=== PATIENT | female | born 1950 | race Caucasian/White ===

== ENCOUNTER 2017-07-27 15:29 | Emergency (ER) | payer OTHER ==
[2017-07-27 15:32] VITALS: BP 137/62; BMI 30.4
[2017-07-27] MEDS ORDERED: TORADOL 60 MG VIAL IM ONE (15:44)
--- NOTE | 2017-07-27 15:45 | DR.EXTPAIN ---
HPI - Time seen Time seen: 15:40 - PCP Primary Care Physician: WILBER - HPI Comment HPI Comment: HISTORY BELOW. - Complaint/Symptoms Chief Complaint Doctor Comments: LEFT KNEE AND LEG PAIN TIMES ONE WEEK. INJURED IT ONE WEEK AGO. PAIN AND SWELLING IN KNEE INCREASING. ON NEURONTIN FOR NEUROPATHY. NOT HELPING PAIN. Chief Complaint:: LEFT KNEE PAIN S/P INJURY X 1 WEEK AGO - Nurses notes reviewed Nurses Notes Review: Yes - Source History Provided: Patient - Mode of arrival Mode of Arrival: Ambulatory - Timing Onset of Chief Complaint: 07/20/17 - Context History of: None (NEUROPATHY PRESENT.) - Associated signs and symptoms Associated Signs and Symptoms: Pain, Swelling, Bruising PMH - PMH Past Medical History: Yes Past Medical History: Diabetes, Hypertension Past Surgical History: Yes Surgical History: - Family History History of Family Medical Conditions: No - Social History Does patient currently use any type of tobacco product: No Have you used tobacco products in the last 12 months: No Type of Tobacco Use: None Does any household member use tobacco: No Alcohol Use: None Do you use any recreational Drugs:: No Lives With: Family Lives Where: Home - infectious screening In the last 2 months have you had wt loss of >10#?: NO Have you had fever, night sweats or hemotysis?: No Have you traveled outside the country in the last 6 months?: No Isolation: Standard ROS - Review of Systems Constitutional: No Symptoms Reported Eyes: No Symptoms Reported ENTM: No Symptoms Reported Respiratoy: No Symptoms Reported Cardiovascular: No Symptoms Reported Gastrointestinal/Abdominal: No Symptoms Reported Genitourinary: No Symptoms Reported Neurological: Other (NEUROPATHY) Musculoskeletal: Joint Pain, Joint Swelling, Muscle Pain, Left, Knee Integumentary: No Symptoms Reported Hematologic/Lymphatic: No Symptoms Reported Endocrine: No Symptoms Reported All Other Systems: Reviewed and Negative PE - Vital Signs Vitals: Temperature 97 F Pulse Rate 98 Respiratory Rate 17 Blood Pressure 137/62 O2 Sat by Pulse Oximetry 97 - General Limitations: No Limitations General Appearance: Alert - Head Head Exam: Normal Inspection - Eyes Eye exam: Normal Appearance - ENT ENT Exam: Normal External Ear Exam - Neck Neck Exam: Normal Inspection - Chest Chest Inspection: Symmetric Chest Wall Rise - Respiratory Respiratory Exam: Normal Lung Sounds Bilat Respiratory Exam: Bilateral Clear to Auscultation - Cardiovascular Cardiovascular Exam: Regular Rate, Normal Rhythm, Normal Heart Sounds - Abdominal Exam Abdominal Exam: Normal Bowel Sounds, Soft. negative: Tenderness - Extremities Extremities Exam: Tenderness (LT KNEE TENDER AND SWOLLEN AND SHEEN BRUISED AND TENDER.) - Lower Extremities Neurovascular/Tendon Exam: Normal Capillary Refill - Back Back Exam: Normal Inspection - Neurological Neurological Exam: Alert, Oriented X3 - Psychiatric Psychiatric Exam: Normal Affect, Normal Mood - Skin Skin Exam: Erythema MDM - Differential Diagnosis Differential Diagnosis: Contusion, Fracture, Sprain Course - Treatment Treatment: SEE REPORT - Education/Counseling Education/Counseling: Patient, Education Educated On: Diagnosis, Needs for Follow Up ROR - XRAY XRAY Interpreted by: Radiologist XRAY Findings: REPORT DISCUSS WITH PATIENT. - Diagnosis Discharge Problem: Left knee sprain Qualifiers: Encounter type: initial encounter Involved ligament of knee: unspecified ligament Qualified Code(s): S83.92XA - Sprain of unspecified site of left knee, initial encounter Contusion of left leg Qualifiers: Encounter type: initial encounter Qualified Code(s): S80.12XA - Contusion of left lower leg, initial encounter - Discharge Plan Disposition: 01 HOME, SELF-CARE Condition: Stable Prescriptions: Ibuprofen [MOTRIN TAB 600 MG *] 600 mg PO TID PRN #20 tab PRN Reason: Pain/Inflammation - Follow ups/Referrals Follow ups/Referrals: Gasper Camacho [Primary Care Provider] - 3 days - Instructions Instructions: Musculoskeletal Pain, Knee Pain, [id number] Additional Instructions: RETURN TO ED IF WORSE.
[2017-07-27] MEDS ORDERED: TORADOL 60 MG VIAL ONE (15:48)
[2017-07-27] MEDS ORDERED: TORADOL TAB PO ONE ×2 (16:12→16:38)
--- NOTE | 2017-07-27 16:27 | RAD ---
Left knee, three views Indication: Knee pain after bending/kneeling down to clean under bed Comparison: None Findings: No acute fracture, malalignment or significant joint effusion is identified. There is mild degenerative narrowing of the patellofemoral compartment. Soft tissues are unremarkable. Impression: Mild degenerative narrowing of patellofemoral compartment without acute fracture or dislocation. Reported By:
== END 2017-07-27 17:01 | disposition home or self-care (01) ==
LOC: ER 15:36
DX: S83.92XA Sprain of unspecified site of left knee, initial encounter (principal); S80.12XA Contusion of left lower leg, initial encounter; Y33.XXXA Other specified events, undetermined intent, initial encounter; Y92.9 Unspecified place or not applicable
CPT/HCPCS: 29530; 73560; 99282; J1885

== ENCOUNTER 2020-09-09 07:57 | Inpatient (IN) ==
[2020-09-09 08:08] VITALS: BMI 32.7
[2020-09-09] MEDS ORDERED: CARDIZEM INJ 50 MG VIAL IVP ONE (08:27)
[2020-09-09] MEDS ORDERED: CARDIZEM INJ 50 MG VIAL ONE (08:31)
[2020-09-09 08:40] LABS: BASOPHILS # (AUTO) 0.1 X10^3/uL (0.0-0.1); EOSINOPHILS # (AUTO) 0.2 x10^3/uL (0.0-0.2); EOSINOPHILS % (AUTO) 4.1 % (0.9-2.9); HEMATOCRIT 35.7 % (36.0-47.0); HEMOGLOBIN 11.8 g/dL (12.0-16.0); LYMPHOCYTES # (AUTO) 1.7 X10^3/uL (1.3-2.9); LYMPHOCYTES % (AUTO) 29.1 % (21.0-51.0); MEAN CORPUSCULAR HEMOGLOBIN 30.2 pg (27.0-34.0); MEAN CORPUSCULAR VOLUME 91.8 fL (80.0-100.0); MEAN PLATELET VOLUME 9.4 fL (7.4-11.0); MONOCYTES # (AUTO) 0.7 x10^3/uL (0.3-0.8); NEUTROPHILS # (AUTO) 3.1 x10^3/uL (2.2-4.8); NEUTROPHILS % (AUTO) 52.8 % (42.0-75.0); PLATELET COUNT 136 X10^3/uL (150.0-450.0); WHITE BLOOD COUNT 5.8 X10^3/uL (3.6-10.0)
--- NOTE | 2020-09-09 08:49 | RAD ---
HISTORYSOBSTUDYCHEST, 1 VIEWCOMPARISONNoneFINDINGSThe lungs are clear. No pneumothorax or significant effusion.The heart is probably large even accounting for magnification.Bones are unremarkable.EKG leads are noted.IMPRESSION1. Probable cardiomegalyElectronically signed by: Umer Corbin (Sep 09, 2020 08:47:22)
[2020-09-09] MEDS ORDERED: ASPIRIN 81 MG CHEWTAB ONE (08:55)
[2020-09-09] MEDS: ASPIRIN 81 MG CHEWTAB PO ONE ×2 (08:58→10:45)
[2020-09-09 09:09] LABS: BLOOD UREA NITROGEN 12 mg/dL (7-18); CALCIUM 9.2 mg/dL (8.5-10.1); CARBON DIOXIDE 27.1 mmol/L (21-32); CHLORIDE 107 mmol/L (98-107); COR NA(FOR HYPERGLY) 144 mmol/L (136-145); CREATININE 0.82 mg/dL (0.55-1.02); SODIUM 143 mmol/L (136-145); TROPONIN I 0.02 ng/mL (0-1.5); eGFR NON BLACK RACES > 60 (>60)
[2020-09-09 09:14] LABS: ALANINE AMINOTRANSFERASE 26 Units/L (12-78); ALBUMIN 3.2 g/dL (3.4-5.0); ALKALINE PHOSPHATASE 191 Units/L (46-116); ASPARTATE AMINO TRANSFERASE 46 Units/L (15-37); CKMB % 3.1 % (<4); COR CA(FOR HYPOALB) 9.8 mg/dL (8.5-10.1); CREATINE KINASE 52 Units/L (26-192); CREATINE KINASE MB 1.6 ng/mL (0-4.0); TOTAL PROTEIN 6.9 g/dL (6.4-8.2)
[2020-09-09] MEDS: CARDIZEM INJ 125 MG VIAL 125 MG in NS 100 ML IV 100 ML IV PRN ×2 (09:23→17:00)
--- NOTE | 2020-09-09 10:10 | DR.SOBA ---
HPI Time Seen Time Seen by Provider: 09/09/20 08:17 Primary Care Physician Primary Care Physician: TEA Complaints Chief Complaint Doctors Comments: cc SOB HPI pt was in out patient surgery to get EGD when a fast irregular HR was noted a HR iof 138 was notef and patient was transferred to Ed. OPt was not aware of fast hr but has noted CHAN last few weeks no CP Chief Complaint:: PT WAS HERE BEING PREP FOR COLONSCOPEY, PT COPLAINTS OF BEING SHORT OF BREATHE, WHEN VITAL SIGNS WERE OBTAINED PT HR IN THE 150, EKG SHOWED A- FIB WITH HR 138. PT DENIES HISTORY OF A-FIB OR ANY CHEST PAIN. 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 Family History History of Family Medical Conditions: No Social History Does patient currently use any type of tobacco product: No Have you used tobacco products in the last 12 months: No Type of Tobacco Use: None Does any household member use tobacco: No Alcohol Use: None Do you use any recreational Drugs:: No Lives With: Family Lives Where: Home Travel Risk Coronavirus risk:travel/contact w/high risk person: No Has patient experienced Coronavirus symptoms: No Infectious screening In the last 2 months have you had wt loss of >10#?: NO Have you had fever, night sweats or hemotysis?: No Have you traveled outside the country in the last 6 months?: No Isolation: Standard ROS Review of Systems Constitutional: No Symptoms Reported ENTM: No Symptoms Reported Respiratoy: Short of Breath Cardiovascular: See HPI Gastrointestinal/Abdominal: No Symptoms Reported Genitourinary: No Symptoms Reported Neurological: No Symptoms Reported Musculoskeletal: No Symptoms Reported Integumentary: No Symptoms Reported Hematologic/Lymphatic: No Symptoms Reported Endocrine: No Symptoms Reported Psychiatric: No Symptoms Reported All Other Systems: Reviewed and Negative PE Vital Signs Vitals: Temperature 97.8 F Pulse Rate 111 Respiratory Rate 10 Blood Pressure 142/63 O2 Sat by Pulse Oximetry 99 General Limitations: No Limitations General Appearance: Alert and In No Apparent Distress Head Head Exam: Normal Inspection, Atraumatic and Normocephalic Eyes Eye exam: Normal Appearance, PERRL and EOMI ENT ENT Exam: Normal Exam, Normal Oropharynx and Normal External Ear Exam Neck Neck Exam: Normal Inspection, Full ROM and Trachea Midline Chest Chest Inspection: Normal Inspection and Symmetric Chest Wall Rise; negative Tenderness Respiratory Respiratory Exam: Normal Lung Sounds Bilat; negative Accessory Muscle Use and Chest Wall Tenderness Respiratory Exam: Bilateral: Clear to Auscultation Cardiovascular Cardiovascular Exam: Tachycardia and Irregular Rhythm Abdominal Exam Abdominal Exam: Normal Inspection, Normal Bowel Sounds and Soft; negative Distention, Tenderness and Guarding Extremities Extremities Exam: Normal Inspection and Full ROM; negative Tenderness Back Back Exam: Normal Inspection and Full ROM; negative Tenderness Neurologic Neurological Exam: Alert, Oriented X3 and Normal Gait (gait not tested but intact sppech and thought and 5/5 strngth thoughourt) Psychiatric Psychiatric Exam: Normal Affect and Normal Mood Skin Skin Exam: Warm, Dry, Intact and Normal Color MDM Differential Diagnosis Differential Diagnosis: Anxiety, Cardiogenic shock, CHF, Dysrhythmia, Hyperventilation, Hyponatremia, Mycardial Infarction, Panic Attack, Pneumothorax, PSVT, Respiratory Failure and Other Differential Diagnosis Comment:: A fob with RVR COURSE Treatment Treatment: pt received 20mg Diltiazem with resolution of sx but HR began creeping up to 114 so I started a drip f diltiazem at 5mg / hour with good control ROR Labs Reviewed Result Diagrams: 09/09/20 08:26 09/09/20 08:26 Laboratory: WBC 5.8 X10^3/uL (3.6-10.0) 09/09/20 08:26 RBC 3.90 X10^6/uL (3.5-5.4) 09/09/20 08:26 Hgb 11.8 g/dL (12.0-16.0) L 09/09/20 08:26 Hct 35.7 % (36.0-47.0) L 09/09/20 08:26 MCV 91.8 fL (80.0-100.0) 09/09/20 08:26 MCH 30.2 pg (27.0-34.0) 09/09/20 08:26 MCHC 33.0 g/dL (33.0-35.0) 09/09/20 08:26 RDW 16.0 % (11.6-16.5) 09/09/20 08:26 Plt Count 136 X10^3/uL (150.0-450.0) L 09/09/20 08:26 MPV 9.4 fL (7.4-11.0) 09/09/20 08:26 Neut % (Auto) 52.8 % (42.0-75.0) 09/09/20 08:26 Lymph % (Auto) 29.1 % (21.0-51.0) 09/09/20 08:26 [place] % (Auto) 13.0 % (0.0-13.0) 09/09/20 08:26 Eos % (Auto) 4.1 % (0.9-2.9) H 09/09/20 08:26 Baso % (Auto) 1.0 % (0.2-1.0) 09/09/20 08:26 Neut # (Auto) 3.1 x10^3/uL (2.2-4.8) 09/09/20 08:26 Lymph # (Auto) 1.7 X10^3/uL (1.3-2.9) 09/09/20 08:26 [place] # (Auto) 0.7 x10^3/uL (0.3-0.8) 09/09/20 08:26 Eos # (Auto) 0.2 x10^3/uL (0.0-0.2) 09/09/20 08:26 Baso # (Auto) 0.1 X10^3/uL (0.0-0.1) 09/09/20 08:26 Absolute Nucleated RBC 0.1 /100WBC 09/09/20 08:26 PT 15.8 SECONDS (11.8-14.3) 09/09/20 08:26 INR Target Range - 09/09/20 08: INR 1.30 (0.8-1.3) 09/09/20 08:26 APTT 34.1 SECONDS (22.9-36.5) 09/09/20 08:26 PTT Comment - 09/09/20 08:26 Sodium 143 mmol/L (136-145) 09/09/20 08:26 Corrected Sodium 144 mmol/L (136-145) 09/09/20 08:26 Potassium 4.0 mmol/L (3.5-5.1) 09/09/20 08:26 Chloride 107 mmol/L (98-107) 09/09/20 08:26 Carbon Dioxide 27.1 mmol/L (21-32) 09/09/20 08:26 BUN 12 mg/dL (7-18) 09/09/20 08:26 Creatinine 0.82 mg/dL (0.55-1.02) 09/09/20 08:26 Est GFR (MDRD) Af Amer > 60 (>60) 09/09/20 08:26 Est GFR (MDRD) Non-Af > 60 (>60) 09/09/20 08:26 Glucose 139 mg/dL (65-99) H 09/09/20 08:26 Calcium 9.2 mg/dL (8.5-10.1) 09/09/20 08:26 Corrected Calcium 9.8 mg/dL (8.5-10.1) 09/09/20 08:26 Total Bilirubin 1.20 mg/dL (0.2-1.0) H 09/09/20 08:26 AST 46 Units/L (15-37) H 09/09/20 08:26 ALT 26 Units/L (12-78) 09/09/20 08:26 Alkaline Phosphatase 191 Units/L (46-116) H 09/09/20 08:26 Creatine Kinase 52 Units/L (26-192) 09/09/20 08:26 CK-MB (CK-2) 1.6 ng/mL (0-4.0) 09/09/20 08:26 CK/CKMB % Calc 3.1 % (<4) 09/09/20 08:26 Troponin I 0.02 ng/mL (0-1.5) 09/09/20 08:26 Total Protein 6.9 g/dL (6.4-8.2) 09/09/20 08:26 Albumin 3.2 g/dL (3.4-5.0) L 09/09/20 08:26 Globulin 3.7 g/dL (2.5-4.5) 09/09/20 08:26 Albumin/Globulin Ratio 0.9 Ratio (1.1-2.1) L 09/09/20 08:26 Opioid Opioid Risk Tool Age ([place] box if 16-45): No History of Preadolescent Sexual Abuse: No Total: 0 Total Score Risk Category: Low Risk Copyright: [employer] STONE predicting aberrant behaviors Diagnosis Discharge Problem: Atrial fibrillation with rapid ventricular response
[2020-09-09] MEDS ORDERED: LANOXIN PO ONE (11:28)
--- NOTE | 2020-09-09 11:55 | DR.SOBA ---
HPI Time Seen Time Seen by Provider: 09/09/20 08:17 Primary Care Physician Primary Care Physician: TEA Complaints Chief Complaint Doctors Comments: cc Fast HR HPI Pt here for EGD as outpatient was found to have fast irregular HR and transferred to ED. Pt was unaware of fast HR she has noted CHAN no orthopnea last few weeks. No CP Chief Complaint:: PT WAS HERE BEING PREP FOR COLONSCOPEY, PT COPLAINTS OF BEING SHORT OF BREATHE, WHEN VITAL SIGNS WERE OBTAINED PT HR IN THE 150, EKG SHOWED A- FIB WITH HR 138. PT DENIES HISTORY OF A-FIB OR ANY CHEST PAIN. 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 Family History History of Family Medical Conditions: No Social History Does patient currently use any type of tobacco product: No Have you used tobacco products in the last 12 months: No Type of Tobacco Use: None Does any household member use tobacco: No Alcohol Use: None Do you use any recreational Drugs:: No Lives With: Family Lives Where: Home Travel Risk Coronavirus risk:travel/contact w/high risk person: No Has patient experienced Coronavirus symptoms: No Infectious screening In the last 2 months have you had wt loss of >10#?: NO Have you had fever, night sweats or hemotysis?: No Have you traveled outside the country in the last 6 months?: No Isolation: Standard ROS Review of Systems Constitutional: No Symptoms Reported Eyes: No Symptoms Reported ENTM: No Symptoms Reported Respiratoy: Short of Breath Cardiovascular: See HPI Genitourinary: No Symptoms Reported Neurological: Depressed Musculoskeletal: No Symptoms Reported Integumentary: No Symptoms Reported Hematologic/Lymphatic: No Symptoms Reported Endocrine: No Symptoms Reported Psychiatric: No Symptoms Reported All Other Systems: Reviewed and Negative PE Vital Signs Vitals: Temperature 97.8 F Pulse Rate 107 Respiratory Rate 13 Blood Pressure 143/65 O2 Sat by Pulse Oximetry 99 General Limitations: No Limitations General Appearance: Alert and In No Apparent Distress Head Head Exam: Normal Inspection, Atraumatic and Normocephalic Eyes Eye exam: Normal Appearance, PERRL, EOMI and Scleral Icterus; negative Conjunct ival Injection and Nystagmus ENT ENT Exam: Normal Exam, Normal Oropharynx, Normal External Ear Exam and Mucous Membranes Moist Neck Neck Exam: Normal Inspection, Full ROM and Trachea Midline; negative Tenderness, Meningismus and Lymphadenopathy Chest Chest Inspection: Normal Inspection and Symmetric Chest Wall Rise; negative Tenderness Respiratory Respiratory Exam: Normal Lung Sounds Bilat; negative Accessory Muscle Use and Chest Wall Tenderness Respiratory Exam: Bilateral: Clear to Auscultation Cardiovascular Cardiovascular Exam: Tachycardia and Irregular Rhythm Abdominal Exam Abdominal Exam: Normal Inspection, Normal Bowel Sounds and Soft; negative Di stention, Tenderness and Guarding Extremities Extremities Exam: Normal Inspection and Full ROM; negative Tenderness, Normal Capillary Refill, Edema, Joint Swelling and Other Back Back Exam: Normal Inspection and Full ROM; negative Tenderness, (R) CVA [place], (L) CVA Tenderness and Muscle Spasm Neurologic Neurological Exam: Alert, Oriented X3 and Normal Gait Psychiatric Psychiatric Exam: Normal Affect and Normal Mood Skin Skin Exam: Warm, Dry, Intact and Normal Color MDM Differential Diagnosis Differential Diagnosis: Anxiety, Cardiogenic shock, CHF, Dysrhythmia, Hyponatremia, Mycardial Infarction, Pneumothorax, Respiratory Failure and Other Differential Diagnosis Comment:: a Fib with RVR, SVT COURSE Treatment Treatment: pt received 20mg of Diltiazem HR went down to 100 then started creeping back up then I started diltiazem drip at 5 mg /hr Dr Camacho accepted ROR Labs Reviewed Laboratory Results Reviewed?: Yes Result Diagrams: 09/09/20 08:26 09/09/20 08:26 Laboratory: WBC 5.8 X10^3/uL (3.6-10.0) 09/09/20 08:26 RBC 3.90 X10^6/uL (3.5-5.4) 09/09/20 08:26 Hgb 11.8 g/dL (12.0-16.0) L 09/09/20 08:26 Hct 35.7 % (36.0-47.0) L 09/09/20 08:26 MCV 91.8 fL (80.0-100.0) 09/09/20 08:26 MCH 30.2 pg (27.0-34.0) 09/09/20 08:26 MCHC 33.0 g/dL (33.0-35.0) 09/09/20 08: RDW 16.0 % (11.6-16.5) 09/09/20 08:26 Plt Count 136 X10^3/uL (150.0-450.0) L 09/09/20 08: MPV 9.4 fL (7.4-11.0) 09/09/20 08: Neut % (Auto) 52.8 % (42.0-75.0) 09/09/20 08:26 Lymph % (Auto) 29.1 % (21.0-51.0) 09/09/20 08: [place] % (Auto) 13.0 % (0.0-13.0) 09/09/20 08: Eos % (Auto) 4.1 % (0.9-2.9) H 09/09/20 08: Baso % (Auto) 1.0 % (0.2-1.0) 09/09/20 08: Neut # (Auto) 3.1 x10^3/uL (2.2-4.8) 09/09/20 08:26 Lymph # (Auto) 1.7 X10^3/uL (1.3-2.9) 09/09/20 08:26 [place] # (Auto) 0.7 x10^3/uL (0.3-0.8) 09/09/20 08:26 Eos # (Auto) 0.2 x10^3/uL (0.0-0.2) 09/09/20 08: Baso # (Auto) 0.1 X10^3/uL (0.0-0.1) 09/09/20 08:26 Absolute Nucleated RBC 0.1 /100WBC 09/09/20 08: PT 15.8 SECONDS (11.8-14.3) 09/09/20 08:26 INR Target Range - 09/09/20 08: INR 1.30 (0.8-1.3) 09/09/20 08: APTT 34.1 SECONDS (22.9-36.5) 09/09/20 08:26 PTT Comment - 09/09/20 08: Sodium 143 mmol/L (136-145) 09/09/20 08:26 Corrected Sodium 144 mmol/L (136-145) 09/09/20 08:26 Potassium 4.0 mmol/L (3.5-5.1) 09/09/20 08:26 Chloride 107 mmol/L (98-107) 09/09/20 08:26 Carbon Dioxide 27.1 mmol/L (21-32) 09/09/20 08:26 BUN 12 mg/dL (7-18) 09/09/20 08:26 Creatinine 0.82 mg/dL (0.55-1.02) 09/09/20 08:26 Est GFR (MDRD) Af Amer > 60 (>60) 09/09/20 08:26 Est GFR (MDRD) Non-Af > 60 (>60) 09/09/20 08:26 Glucose 139 mg/dL (65-99) H 09/09/20 08:26 Calcium 9.2 mg/dL (8.5-10.1) 09/09/20 08:26 Corrected Calcium 9.8 mg/dL (8.5-10.1) 09/09/20 08:26 Total Bilirubin 1.20 mg/dL (0.2-1.0) H 09/09/20 08:26 AST 46 Units/L (15-37) H 09/09/20 08:26 ALT 26 Units/L (12-78) 09/09/20 08:26 Alkaline Phosphatase 191 Units/L (46-116) H 09/09/20 08:26 Creatine Kinase 52 Units/L (26-192) 09/09/20 08:26 CK-MB (CK-2) 1.6 ng/mL (0-4.0) 09/09/20 08:26 CK/CKMB % Calc 3.1 % (<4) 09/09/20 08:26 Troponin I 0.02 ng/mL (0-1.5) 09/09/20 08:26 Total Protein 6.9 g/dL (6.4-8.2) 09/09/20 08:26 Albumin 3.2 g/dL (3.4-5.0) L 09/09/20 08:26 Globulin 3.7 g/dL (2.5-4.5) 09/09/20 08:26 Albumin/Globulin Ratio 0.9 Ratio (1.1-2.1) L 09/09/20 08:26 XRAY XRAY Interpreted by: Radiologist X-ray Results: nad EKG Rate: 109 [place]: Normal Rhythm: Afib Block: None Hypertrophy: None ST: Nonsp Opioid Opioid Risk Tool Age ([place] box if 16-45): No History of Preadolescent Sexual Abuse: No Total: 0 Total Score Risk Category: Low Risk Copyright: Acucar Guarani predicting aberrant behaviors Diagnosis Discharge Problem: Atrial fibrillation with rapid ventricular response ADDITIONAL NOTES Additional Notes Additional Notes: Critical care 35 minutes
[2020-09-09] MEDS ORDERED: LANOXIN ONE (11:58)
[2020-09-09] MEDS ORDERED: LOVENOX INJ 100 MG SYR SC STA (14:15)
[2020-09-09] MEDS ORDERED: LANOXIN INJ IVP STA (14:15)
[2020-09-09] MEDS ORDERED: GLUCOPHAGE XR 24-HR PO SCH (14:15)
[2020-09-09] MEDS ORDERED: MOTRIN TAB 600 MG PO PRN (14:15)
[2020-09-09] MEDS ORDERED: TENORMIN PO SCH (14:15)
[2020-09-09 14:17] LABS: CKMB % 4.2 % (<4); CREATINE KINASE MB 1.5 ng/mL (0-4.0); TROPONIN I 0.02 ng/mL (0-1.5)
[2020-09-09] MEDS ORDERED: LOVENOX INJ 100 MG SYR SC ONE (14:34)
[2020-09-09] MEDS: LOTENSIN TAB 10 MG PO SCH ×2 (16:18→21:37)
[2020-09-09] MEDS: GLUCOPHAGE XR 24-HR PO SCH ×2 (16:22→21:37)
[2020-09-09] MEDS ORDERED: CARDIZEM INJ 125 MG VIAL ONE (17:03)
[2020-09-09] MEDS ORDERED: NS 100 ML IV 100 ML IV ONE (17:03)
[2020-09-09] MEDS ORDERED: NS 500 ML IV 500 ML IV ONE ×2 (17:57→18:02)
[2020-09-09 19:18] LABS: CKMB % 3.6 % (<4); CREATINE KINASE MB 1.3 ng/mL (0-4.0); TROPONIN I 0.03 ng/mL (0-1.5)
--- NOTE | 2020-09-09 19:45 | DR.SOBA ---
HPI Time Seen Time Seen by Provider: 09/09/20 08:17 Primary Care Physician Primary Care Physician: TEA Complaints Chief Complaint:: PT WAS HERE BEING PREP FOR COLONSCOPEY, PT COPLAINTS OF BEING SHORT OF BREATHE, WHEN VITAL SIGNS WERE OBTAINED PT HR IN THE 150, EKG SHOWED A- FIB WITH HR 138. PT DENIES HISTORY OF A-FIB OR ANY CHEST PAIN. COVID-19 Coronavirus risk:travel/contact w/high risk person: No Has patient experienced Coronavirus symptoms: No Source History Provided: Patient and Other Mode of Arrival Mode of Arrival: Wheelchair Timing Onset of Chief Complaint: 09/09/20 PMH PMH Past Medical History: Yes Past Medical History: Diabetes and Hypertension Past Surgical History: Yes Surgical History: and [employer] Surgery Family History History of Family Medical Conditions: No Social History Does patient currently use any type of tobacco product: No Have you used tobacco products in the last 12 months: No Type of Tobacco Use: None Does any household member use tobacco: No Alcohol Use: None Do you use any recreational Drugs:: No Lives With: Family Lives Where: Home Travel Risk Coronavirus risk:travel/contact w/high risk person: No Has patient experienced Coronavirus symptoms: No Infectious screening In the last 2 months have you had wt loss of >10#?: NO Have you had fever, night sweats or hemotysis?: No Have you traveled outside the country in the last 6 months?: No Isolation: Standard ROS Review of Systems Constitutional: Malaise, Weakness and Fatigue Eyes: No Symptoms Reported ENTM: No Symptoms Reported Respiratoy: No Symptoms Reported Cardiovascular: See HPI Gastrointestinal/Abdominal: No Symptoms Reported Neurological: No Symptoms Reported Musculoskeletal: No Symptoms Reported Integumentary: No Symptoms Reported Hematologic/Lymphatic: No Symptoms Reported Psychiatric: No Symptoms Reported All Other Systems: Reviewed and Negative PE Vital Signs Vitals: Temperature 97.8 F Pulse Rate 105 Respiratory Rate 16 Blood Pressure 145/63 O2 Sat by Pulse Oximetry 99 General Limitations: No Limitations General Appearance: Alert and In No Apparent Distress Head Head Exam: Normal Inspection, Atraumatic and Normocephalic Eyes Eye exam: Normal Appearance, PERRL and EOMI; negative Scleral Icterus and Conjunctival Injection ENT ENT Exam: Normal Exam, Normal External Ear Exam and Mucous Membranes Moist Neck Neck Exam: Normal Inspection, Full ROM and Trachea Midline; negative Tenderness, Meningismus and Lymphadenopathy Chest Chest Inspection: Normal Inspection and Symmetric Chest Wall Rise; negative Tenderness Respiratory Respiratory Exam: Normal Lung Sounds Bilat; negative Accessory Muscle Use and Chest Wall Tenderness Respiratory Exam: Bilateral: Clear to Auscultation Cardiovascular Cardiovascular Exam: Tachycardia and Irregular Rhythm Abdominal Exam Abdominal Exam: Normal Inspection, Normal Bowel Sounds and Soft; negative Distention, Tenderness, Guarding and Rebound Extremities Extremities Exam: Normal Inspection, Full ROM and Normal Capillary Refill; ne gative Tenderness, Edema and Joint Swelling Back Back Exam: Normal Inspection and Full ROM; negative Tenderness Neurologic Neurological Exam: Alert, Oriented X3 and Normal Gait Psychiatric Psychiatric Exam: Normal Affect and Normal Mood Skin Skin Exam: Warm, Dry, Intact and Normal Color COURSE Treatment Treatment: see nurses flow sheet ROR Labs Reviewed Result Diagrams: 09/10/20 05:34 09/10/20 05:34 Laboratory: WBC 5.8 X10^3/uL (3.6-10.0) 09/09/20 08:26 RBC 3.90 X10^6/uL (3.5-5.4) 09/09/20 08:26 Hgb 11.8 g/dL (12.0-16.0) L 09/09/20 08:26 Hct 35.7 % (36.0-47.0) L 09/09/20 08:26 MCV 91.8 fL (80.0-100.0) 09/09/20 08:26 MCH 30.2 pg (27.0-34.0) 09/09/20 08:26 MCHC 33.0 g/dL (33.0-35.0) 09/09/20 08:26 RDW 16.0 % (11.6-16.5) 09/09/20 08:26 Plt Count 136 X10^3/uL (150.0-450.0) L 09/09/20 08:26 MPV 9.4 fL (7.4-11.0) 09/09/20 08:26 Neut % (Auto) 52.8 % (42.0-75.0) 09/09/20 08:26 Lymph % (Auto) 29.1 % (21.0-51.0) 09/09/20 08:26 [place] % (Auto) 13.0 % (0.0-13.0) 09/09/20 08:26 Eos % (Auto) 4.1 % (0.9-2.9) H 09/09/20 08:26 Baso % (Auto) 1.0 % (0.2-1.0) 09/09/20 08:26 Neut # (Auto) 3.1 x10^3/uL (2.2-4.8) 09/09/20 08:26 Lymph # (Auto) 1.7 X10^3/uL (1.3-2.9) 09/09/20 08:26 [place] # (Auto) 0.7 x10^3/uL (0.3-0.8) 09/09/20 08:26 Eos # (Auto) 0.2 x10^3/uL (0.0-0.2) 09/09/20 08:26 Baso # (Auto) 0.1 X10^3/uL (0.0-0.1) 09/09/20 08:26 Absolute Nucleated RBC 0.1 /100WBC 09/09/20 08:26 PT 15.8 SECONDS (11.8-14.3) 09/09/20 08:26 INR Target Range - 09/09/20 08:26 INR 1.30 (0.8-1.3) 09/09/20 08:26 APTT 34.1 SECONDS (22.9-36.5) 09/09/20 08:26 PTT Comment - 09/09/20 08:26 Sodium 143 mmol/L (136-145) 09/09/20 08:26 Corrected Sodium 144 mmol/L (136-145) 09/09/20 08:26 Potassium 4.0 mmol/L (3.5-5.1) 09/09/20 08:26 Chloride 107 mmol/L (98-107) 09/09/20 08:26 Carbon Dioxide 27.1 mmol/L (21-32) 09/09/20 08:26 BUN 12 mg/dL (7-18) 09/09/20 08:26 Creatinine 0.82 mg/dL (0.55-1.02) 09/09/20 08:26 Est GFR (MDRD) Af Amer > 60 (>60) 09/09/20 08:26 Est GFR (MDRD) Non-Af > 60 (>60) 09/09/20 08:26 Glucose 139 mg/dL (65-99) H 09/09/20 08:26 Calcium 9.2 mg/dL (8.5-10.1) 09/09/20 08:26 Corrected Calcium 9.8 mg/dL (8.5-10.1) 09/09/20 08:26 Total Bilirubin 1.20 mg/dL (0.2-1.0) H 09/09/20 08:26 AST 46 Units/L (15-37) H 09/09/20 08:26 ALT 26 Units/L (12-78) 09/09/20 08:26 Alkaline Phosphatase 191 Units/L (46-116) H 09/09/20 08:26 Creatine Kinase 52 Units/L (26-192) 09/09/20 08:26 CK-MB (CK-2) 1.6 ng/mL (0-4.0) 09/09/20 08:26 CK/CKMB % Calc 3.1 % (<4) 09/09/20 08:26 Troponin I 0.02 ng/mL (0-1.5) 09/09/20 08:26 Total Protein 6.9 g/dL (6.4-8.2) 09/09/20 08:26 Albumin 3.2 g/dL (3.4-5.0) L 09/09/20 08:26 Globulin 3.7 g/dL (2.5-4.5) 09/09/20 08:26 Albumin/Globulin Ratio 0.9 Ratio (1.1-2.1) L 09/09/20 08:26 Digoxin < 0.20 ng/mL (0.9-2) L 09/09/20 08:26 EKG Rate: 138 Rhythm: Afib Block: LBBB and RBBB Hypertrophy: None ST: Normal Opioid Opioid Risk Tool Age (Elroy box if 16-45): No History of Preadolescent Sexual Abuse: No Total: 0 Total Score Risk Category: Low Risk Copyright: Binu STONE predicting aberrant behaviors Diagnosis Discharge Problem: Atrial fibrillation with rapid ventricular response Instructions Instructions: Shortness of Breath, Adult, Wwyj-ja-Xakj Type 2 Diabetes Mellitus, Self Care, Adult, Mbyr-ho-Gqlm Hypertension, Isrm-vm-Madv Atrial Fibrillation, Qhdv-zn-Fyfn Forms: Precautions for COVID19 Patient Portal Social Distancing ADDITIONAL NOTES Additional Notes Additional Notes: critical care 30 min
[2020-09-09] MEDS ORDERED: PriLOSEC PO ONE (20:24)
[2020-09-09] MEDS: LOVENOX INJ 30 MG SYR SC SCH (21:45)
[2020-09-09] MEDS: ULTRAM PO SCH (21:46)
[2020-09-10 06:19] LABS: BASOPHILS % (AUTO) 0.6 % (0.2-1.0); EOSINOPHILS # (AUTO) 0.2 x10^3/uL (0.0-0.2); EOSINOPHILS % (AUTO) 3.2 % (0.9-2.9); HEMATOCRIT 34.6 % (36.0-47.0); HEMOGLOBIN 11.5 g/dL (12.0-16.0); LYMPHOCYTES % (AUTO) 32.1 % (21.0-51.0); MEAN CORPUSCULAR HEMOGLOBIN 30.5 pg (27.0-34.0); MEAN CORPUSCULAR HGB CONC 33.2 g/dL (33.0-35.0); MEAN PLATELET VOLUME 9.9 fL (7.4-11.0); MONOCYTES # (AUTO) 0.6 x10^3/uL (0.3-0.8); MONOCYTES % (AUTO) 9.9 % (0.0-13.0); NEUTROPHILS # (AUTO) 3.3 x10^3/uL (2.2-4.8); NEUTROPHILS % (AUTO) 54.2 % (42.0-75.0); PLATELET COUNT 148 X10^3/uL (150.0-450.0); RED BLOOD COUNT 3.76 X10^6/uL (3.5-5.4); RED CELL DISTRIBUTION WIDTH 16.2 % (11.6-16.5); WHITE BLOOD COUNT 6.1 X10^3/uL (3.6-10.0)
[2020-09-10 06:32] LABS: ALANINE AMINOTRANSFERASE 22 Units/L (12-78); ALBUMIN 2.9 g/dL (3.4-5.0); ALKALINE PHOSPHATASE 169 Units/L (46-116); ASPARTATE AMINO TRANSFERASE 42 Units/L (15-37); BLOOD UREA NITROGEN 16 mg/dL (7-18); CALCIUM 9.1 mg/dL (8.5-10.1); CARBON DIOXIDE 26.9 mmol/L (21-32); CHLORIDE 110 mmol/L (98-107); COR NA(FOR HYPERGLY) 147 mmol/L (136-145); CREATININE 0.94 mg/dL (0.55-1.02); SODIUM 146 mmol/L (136-145); TOTAL PROTEIN 6.3 g/dL (6.4-8.2); eGFR NON BLACK RACES > 60 (>60)
[2020-09-10 06:41] LABS: AMMONIA 48 umol/L (11-32)
[2020-09-10] MEDS ORDERED: PriLOSEC PO SCH (09:00)
[2020-09-10 10:21] VITALS: BP 144/76
[2020-09-10] MEDS: GLUCOPHAGE XR 24-HR PO SCH (10:33)
[2020-09-10] MEDS: ULTRAM PO SCH (10:33)
[2020-09-10] MEDS: LOVENOX INJ 30 MG SYR SC SCH (10:35)
[2020-09-10] MEDS: LOTENSIN TAB 10 MG PO SCH (10:36)
[2020-09-10] MEDS ORDERED: TOPROL XL PO ONE (10:58)
--- NOTE | 2020-10-14 11:11 | DR.CARTERS ---
Short Stay Summary - Admission Date Date of Admission: 09/09/20 - Discharge Date Discharge Date: 09/10/20 - Admission Diagnoses (1) Atrial fibrillation with rapid ventricular response Status: Acute - Hospital Course Hospital Course: IS A 70 YEAR OLD PATIENT OF OURS. SHE WAS IN OUTPATIENT SURGERY FOR AN EGD, WHEN SHE WAS NOTED TO HAVE A FAST, IRREGULAR HEART RATE. HER HEART RATE WAS NOTED TO BE IN THE 130s-150s AND WA NOTED TO BE A-FIB ON THE HEART MONITOR. PATIENT REPORTED THAT SHE HAS NOT NOTICED THE INCREASED HEART RATE, BUT THAT SHE HAS HAD INCREASED SHORTNESS OF BREATH OVER THE PAST FEW WEEKS. PATIENT DENIES A HISTORY OF A-FIB OR CHEST PAIN. HER PMH INCLUDES DIABETES AND HYPERTENSION. SHE IS CURRENTLY PRESCRIBED ATENOLOL, HOWEVER, PATIENTS FAMILY REPORTED THAT SHE DOES NOT TAKE IT REGULARLY. ON ARRIVAL TO THE ER, VITALS WERE 97.8-156-20-99%-138/94. LABS WERE OBTAINED. ABNORMAL LAB VALUES INCLUDE THE FOLLOWING: WBC 11.8, HCT 35.7, PLT COUNT 136, GLUCOSE 139, TOTAL BILI 1.20, AST 46, ALK PHOS 191, ALBUMIN 3.2, DIGOXIN <0.20. CARDIAC ENZYMES WITHIN NORMAL LIMITS. COVID-19 NEGATIVE. AN EKG WAS OBTAINED AND REVEALED: ATRIAL FIBRILLATION WITH HR 138. CHEST XRAY REVEALED: PROBABLE CARDIOMEGALY. IN THE ER, SHE WAS GIVEN ASPIRIN 81MG PO X 1 DOSE, CARDIZEM 20MG IV X 1 DOSE, LANOXIN 0.25MG PO X 1 DOSE, LOVENOX 100MG SC X 1 DOSE, ATENOLOL 50MG PO X 1 DOSE, PRILOSEC 40MG PO X 1 DOSE, AND A NORMAL SALINE 1 LITER BOLUS. HER HEART RATED DID DECREASE TO NORMAL RANGE AFTER BOLUS OF CARDIZEM, HOWEVER, IT BEGAN TO CREEP BACK UP TO 110-120. A CARDIZEM DRIP WAS THEN STARTED. SHE WAS ADMITTED TO THE HOSPITAL FOR FURTHER EVALUATION AND TREATMENT OF A-FIB WITH RVR. SHE WAS STARTED ON ATENOLOL 50MG PO DAILY, LOTENSIN 20MG PO BID, IBUPROFEN 600MG PO TID PRN, METFORMIN 1000MG PO BID, TRAMADOL 50MG PO BID, LYRICA 100MG PO BID, LOVENOX 30MG SC BID, PRILOSEC 40MG PO DAILY. OTHERWISE, WE PLAN TO FOLLOW UP WITH AM LABS AND CONTINUE TO MONITOR. ON MORNING ROUNDS, PATIENT IS SITTING UP ON THE SIDE OF THE BED. HEART RATE IS WITHIN NORMAL RANGE. PATIENT DENIES CHEST PAIN OR SHORTNESS OF BREATH AND REPORTS FEELING WELL. SHE IS REQUESTING DISCHARGE HOME. SHE IS NO LONGER ON THE CARDIZEM DRIP DUE TO HEART RATE DROPPING TO 38 BPM AND DECREASED BLOOD PRESSURE. BLOOD PRESSURE AND HEART RATE DID INCREASE WHEN DRIP WAS DISCONTINUED. ON EXAMINATION, HEART IS REGULAR IN RATE AND RHYTHM. BILATERAL LUNGS ARE CLEAR TO AUSCULTATION. ABDOMEN IS ROUND, SOFT, AND NON-TENDER WITH NORMAL BOWEL SOUNDS NOTED IN ALL QUADRANTS. HER VITALS THIS MORNING ARE: 98.0-87-20-95%-134/66. LABS WERE OBTAINED. ABNORMAL LAB VALUES INCLUDE THE FOLLOWING: HGB 11.5, HCT 34.6, PLT COUNT 148, SODIUM 146, CHLORIDE 110, GLUCOSE 140, AST 42, ALK PHOS 169, AMMONIA 48, BNP 180, TOTAL PROTEIN 6.3, ALBUMIN 2.9. CARDIAC ENZYMES WITHIN NORMAL LIMITS. ECHO REVEALED AN EJECTION FRACTION OF 66%, SEVERE PULMONARY HYPERTENSION. WE PLANNED FOR DISCHARGE. INSTRUCTIONS FOR MEDICATIONS AND FOLLOW UP WERE DISCUSSED WITH PATIENT AND FAMILY. THEY VERBALIZED UNDERSTANDING OF ALL ORDERS. SHE WAS DISCHARGED HOME WITH A NEW PRESCRIPTION FOR METOPROLOL SUCCINATE 50MG PO DAILY. SHE WAS INSTRUCTED TO DISCONTINUE THE ATENOLOL. SHE WAS ALSO INSTRUCTED TO FOLLOW UP IN THE OFFICE NEXT WEEK. PATIENT WAS DISCHARGED HOME WITH FAMILY IN STABLE CONDITION. TIME SPENT ON CLINCIAL ASSESSMENT, REVIEWING LABS AND IMAGING, DECISION MAKING, DOCUMENTATION, AND PREPARING DISCHARGE PAPERS WAS GREATER THAN 75 MINUTES. - Discharge Medications Discharge Medications: Home Medication List benazepril 20 mg PO DAILY 09/09/20 [History] furosemide 20 mg PO DIRECTED 09/09/20 [History] metformin 1,000 mg PO BID 09/09/20 [History] omeprazole 40 mg PO DAILY 09/09/20 [History] pregabalin 100 mg PO BID 09/09/20 [History] tramadol 50 mg PO BID 09/09/20 [History] metoprolol succinate 50 mg PO DAILY #30 tab 09/10/20 [Rx] Prescriptions: metoprolol succinate Gasper Camacho - Discharge Plan Disposition: HOME, SELF-CARE Condition: Stable Prescriptions: metoprolol succinate 50 mg PO DAILY #30 tab - Follow up/Referrals Follow up/Referrals: ZEE GIBSON [Nurse Practitioner] - 09/16/20 3:00 pm (Zee will call you around 3pm for follow up ) - Instructions Instructions: Shortness of Breath, Adult, Qrca-ov-Voyx, Type 2 Diabetes Mellitus, Self Care, Adult, Eqpv-fs-Djkj, Hypertension, Gphn-do-Eiqp, Atrial Fibrillation, Sdev-zr-Xnnd Additional Instructions: DIET TOLERATED. ACTIVITY TOLERATED. Forms: Precautions for COVID19, Patient Portal, Social Distancing
== END 2020-09-10 12:02 | disposition home or self-care (01) | DRG 310 ==
LOC: ER 07:57 → MERGE 07:57 → MED/SURG 11:18 → OBS 11:19
PROVIDERS: ADMIT Internal Medicine; ATTEND Internal Medicine
DX: R06.02 Shortness of breath; R94.31 Abnormal electrocardiogram [ECG] [EKG]; Z20.822 Contact with and (suspected) exposure to COVID-19; I48.20 Chronic atrial fibrillation, unspecified; E11.65 Type 2 diabetes mellitus with hyperglycemia; I10 Essential (primary) hypertension

== ENCOUNTER 2021-05-02 15:14 | Observation (INO) ==
[2021-05-02] MEDS ORDERED: HumuLIN R SUBCUT PRN (18:35)
[2021-05-02 18:57] LABS: BASOPHILS # (AUTO) 0.1 X10^3/uL (0.0-0.1); BASOPHILS % (AUTO) 1.4 % (0.2-1.0); EOSINOPHILS # (AUTO) 0.4 x10^3/uL (0.0-0.2); EOSINOPHILS % (AUTO) 5.7 % (0.9-2.9); HEMOGLOBIN 9.1 g/dL (12.0-16.0); LYMPHOCYTES # (AUTO) 1.9 X10^3/uL (1.3-2.9); LYMPHOCYTES % (AUTO) 29.6 % (21.0-51.0); MEAN CORPUSCULAR HEMOGLOBIN 33.3 pg (27.0-34.0); MEAN CORPUSCULAR HGB CONC 33.8 g/dL (33.0-35.0); MEAN CORPUSCULAR VOLUME 98.4 fL (80.0-100.0); MEAN PLATELET VOLUME 9.3 fL (7.4-11.0); MONOCYTES # (AUTO) 0.6 x10^3/uL (0.3-0.8); MONOCYTES % (AUTO) 9.8 % (0.0-13.0); NEUTROPHILS # (AUTO) 3.4 x10^3/uL (2.2-4.8); NEUTROPHILS % (AUTO) 53.5 % (42.0-75.0); PLATELET COUNT 138 X10^3/uL (150.0-450.0); RED BLOOD COUNT 2.74 X10^6/uL (3.5-5.4); RED CELL DISTRIBUTION WIDTH 16.9 % (11.6-16.5); WHITE BLOOD COUNT 6.4 X10^3/uL (3.6-10.0)
[2021-05-02 19:15] LABS: ALBUMIN 2.8 g/dL (3.4-5.0); CALCIUM 8.8 mg/dL (8.5-10.1); CARBON DIOXIDE 33.3 mmol/L (21-32); CKMB % 2.3 % (<4); COR CA(FOR HYPOALB) 9.8 mg/dL (8.5-10.1); CREATINE KINASE MB 1.4 ng/mL (0-4.0); CREATININE 1.23 mg/dL (0.55-1.02); TOTAL PROTEIN 6.3 g/dL (6.4-8.2); TROPONIN I 0.04 ng/mL (0-1.5)
[2021-05-02] MEDS: NS 1000 ML 1,000 ML IV SCH (21:51)
[2021-05-02] MEDS: MAG-OX TAB PO SCH (22:00)
[2021-05-02] MEDS: BENADRYL CAP/TAB 25 MG PO SCH (22:00)
[2021-05-02] MEDS: ELIQUIS PO SCH (22:00)
[2021-05-02] MEDS: SNACK - Diabetic Appropriate PO SCH (22:06)
[2021-05-02 22:45] LABS: BILIRUBIN,URINE NEGATIVE (NEGATIVE); BLOOD/HEMOGLOBIN,URINE NEGATIVE (NEGATIVE); GLUCOSE, URINE NEGATIVE (NEGATIVE); KETONES,URINE NEGATIVE (NEGATIVE); LEUKOCYTE ESTERASE ,URINE NEGATIVE (NEGATIVE); NITRITES,URINE NEGATIVE (NEGATIVE); PROTEIN,URINE NEGATIVE (NEGATIVE); UROBILINOGEN,URINE NORMAL (NORMAL)
[2021-05-02 22:48] LABS: APPEARANCE,URINE CLEAR (CLEAR); COLOR,URINE YELLOW (YELLOW)
[2021-05-03 01:22] LABS: CKMB % 2.5 % (<4); CREATINE KINASE MB 1.5 ng/mL (0-4.0); TROPONIN I 0.04 ng/mL (0-1.5)
--- NOTE | 2021-05-03 02:50 | RAD ---
PROCEDURE: Chest X-ray 1 View .HISTORY: WEAKNESS, FREQUENT FALLS .TECHNIQUE: AP view .COMPARISON: 04/26/2021.TECHNICAL QUALITY: Satisfactory .FINDINGS:Unchanged moderate cardiomegaly.Mediastinum and hilar regions show no masses or lymphadenopathy .Mildly increased central vascularity.No pulmonary consolidation, masses, pleural fluid, or pneumothorax .No acute bony abnormality .IMPRESSION:Unchanged moderate cardiomegaly with mild central vascular congestion.Electronically signed by: Ernesto Johnson (May 03, 2021 02:48:20)
[2021-05-03 06:47] LABS: BASOPHILS % (AUTO) 0.6 % (0.2-1.0); EOSINOPHILS # (AUTO) 0.3 x10^3/uL (0.0-0.2); EOSINOPHILS % (AUTO) 5.7 % (0.9-2.9); HEMATOCRIT 25.3 % (36.0-47.0); HEMOGLOBIN 8.6 g/dL (12.0-16.0); LYMPHOCYTES # (AUTO) 2.1 X10^3/uL (1.3-2.9); LYMPHOCYTES % (AUTO) 39.6 % (21.0-51.0); MEAN CORPUSCULAR HEMOGLOBIN 33.1 pg (27.0-34.0); MEAN CORPUSCULAR VOLUME 97.5 fL (80.0-100.0); MEAN PLATELET VOLUME 9.3 fL (7.4-11.0); MONOCYTES # (AUTO) 0.6 x10^3/uL (0.3-0.8); MONOCYTES % (AUTO) 10.6 % (0.0-13.0); NEUTROPHILS # (AUTO) 2.3 x10^3/uL (2.2-4.8); NEUTROPHILS % (AUTO) 43.5 % (42.0-75.0); PLATELET COUNT 110 X10^3/uL (150.0-450.0); RED CELL DISTRIBUTION WIDTH 16.7 % (11.6-16.5); WHITE BLOOD COUNT 5.4 X10^3/uL (3.6-10.0)
[2021-05-03 07:17] LABS: ALBUMIN 2.4 g/dL (3.4-5.0); CALCIUM 8.5 mg/dL (8.5-10.1); CARBON DIOXIDE 30.7 mmol/L (21-32); CKMB % 2.1 % (<4); COR CA(FOR HYPOALB) 9.8 mg/dL (8.5-10.1); CREATINE KINASE MB 1.2 ng/mL (0-4.0); CREATININE 1.2 mg/dL (0.55-1.02); DIGOXIN 1.56 ng/mL (0.9-2); TOTAL PROTEIN 5.6 g/dL (6.4-8.2); TROPONIN I 0.03 ng/mL (0-1.5)
[2021-05-03] MEDS: ZyrTEC TAB 10 MG PO SCH (08:31)
[2021-05-03] MEDS: ELIQUIS PO SCH ×2 (08:32→20:33)
[2021-05-03] MEDS: TOPROL XL PO SCH (08:32)
[2021-05-03] MEDS: MAG-OX TAB PO SCH ×2 (08:33→20:34)
[2021-05-03] MEDS: NS 1000 ML 1,000 ML IV SCH ×3 (08:35→21:00)
[2021-05-03] MEDS ORDERED: LANOXIN or DIGITEK PO SCH (09:00)
[2021-05-03] MEDS ORDERED: LASIX PO SCH ×2 (09:00→17:00)
[2021-05-03] MEDS: GLUCOPHAGE XR 24-HR PO SCH ×2 (09:26→20:34)
[2021-05-03] MEDS: LASIX PO SCH (09:28)
--- NOTE | 2021-05-03 11:00 | DR.H&P ---
H&P - History & Physical for Day of: H&P Date: 05/02/21 - Chief Complaint Chief Complaint: FALLS, WEAKNESS, RIGHT HIP PAIN, CONFUSION - Past Medical History Past Medical History: CHF, Diabetes, Hypertension Additional Medical History: A-FIB, DIABETIC NEUROPATHY - Past Surgical History Surgical History: - Family History Family Medical History: Diabetes Mellitus, Coronary Artery Disease - Social History Does patient currently use any type of tobacco product: No Have you used tobacco products in the last 12 months: No Type of Tobacco Use: None Does any household member use tobacco: No Alcohol Use: None Drug Use: None - Medications Home Medications: No Known Drug Allergies Allergy (Verified 09/09/20 08:51) CONTINUE taking the following medications apixaban [Eliquis] 5 mg PO BID 05/02/21 [History] cetirizine 10 mg PO DAILY 05/02/21 [History] digoxin 125 mcg PO DAILY 05/02/21 [History] diphenhydramine HCl [Benadryl] 25 mg PO QHS 05/02/21 [History] furosemide 40 mg PO QAM 05/02/21 [History] magnesium oxide 400 mg PO BID 05/02/21 [History] - Review of Systems Constitutional: Weakness Eyes: No Symptoms Reported ENT: No Symptoms Reported Respiratory: No Symptoms Reported Cardiovascular: Light Headedness Gastrointestinal: No Symptoms Reported Genitourinary: No Symptoms Reported Musculoskeletal: See HPI (RIGHT HIP PAIN ) Skin: No Symptoms Reported Neurological: Weakness, Confusion - Physical Exam Vital Signs: Temperature 98.2 F Pulse Rate [Bilateral Radial] 68 Pulse Rate 68 Respiratory Rate 18 Blood Pressure [Right Arm] 123/59 O2 Sat by Pulse Oximetry 95 Oriented: Person, Place Eyes: Normal Ear: Normal Nose: Normal Throat: Normal Respiratory: Diminished Throughout Cardiovascular: Normal : Normal Auscultation: Bowel Sounds: Normal Palpation: Normal Tenderness: Normal Skin: Normal Musculoskeletal: Right, Hip, Tender Psychiatric: Normal Mood Description: Calm Affect: Normal Speech Pattern: Clear - Assessment/Plan (1) Ataxic gait Status: Acute Plan: ADMIT, NORMAL SALINE AT 50 ML/HR, HUMULIN R SLIDING SCALE, AND HER HOME MEDICATIONS OF METFORMIN 1,000MG PO BID, ELIQUIS 5MG PO BID, CETIRIZINE 10MG PO DAILY, BENADRYL 25MG PO HS, LASIX 40MG PO AM, LASIX 20MG PO 1700, MAG-OX 400MG PO BID, AND TOPROL XL 50MG PO DAILY WERE RESUMED (2) Generalized weakness Status: Acute (3) Frequent falls Status: Acute (4) Altered mental status Qualifiers: Altered mental status type: transient alteration of awareness Qualified Code(s): R40.4 - Transient alteration of awareness Status: Acute (5) Atrial fibrillation Qualifiers: Atrial fibrillation type: unspecified Qualified Code(s): I48.91 - Unspecified atrial fibrillation Status: Chronic (6) CHF (congestive heart failure) Qualifiers: Heart failure chronicity: acute on chronic Status: Chronic (7) HTN (hypertension) Qualifiers: Hypertension type: primary hypertension Qualified Code(s): I10 - Essential (primary) hypertension Status: Chronic - Allergies Allergies/Adverse Reactions: Allergies Allergy/AdvReac Type Severity Reaction Status Date / Time No Known Drug Allergies Allergy Verified 09/09/20 08:51
[2021-05-03 12:00] VITALS: BMI 34.4
--- NOTE | 2021-05-03 13:46 | RAD ---
HISTORYRECENT FALL, RIGHT HIP PAINSTUDYHIP-RIGHTCOMPARISONNoneFINDINGSNo acute fracture or malalignment is identified. There are mi ld degenerative changes of the bilateral hips as well as imaged lower lumbar spine. No SI joint or pu bic symphysis diastasis. There is no gross soft tissue injury.IMPRESSIONDegenerative changes as above without acute osseous abnormality.Electronically signed by: LEIGH CORTES (May 03, 2021 13:44:03)
[2021-05-03] MEDS: SNACK - Diabetic Appropriate PO SCH (19:51)
[2021-05-03] MEDS: BENADRYL CAP/TAB 25 MG PO SCH (20:33)
[2021-05-04 06:16] LABS: BASOPHILS % (AUTO) 0.5 % (0.2-1.0); EOSINOPHILS # (AUTO) 0.3 x10^3/uL (0.0-0.2); HEMATOCRIT 26.4 % (36.0-47.0); MEAN CORPUSCULAR HEMOGLOBIN 33.4 pg (27.0-34.0); MEAN CORPUSCULAR HGB CONC 34.2 g/dL (33.0-35.0); MEAN CORPUSCULAR VOLUME 97.8 fL (80.0-100.0); MEAN PLATELET VOLUME 9.1 fL (7.4-11.0); MONOCYTES # (AUTO) 0.6 x10^3/uL (0.3-0.8); MONOCYTES % (AUTO) 10.4 % (0.0-13.0); NEUTROPHILS # (AUTO) 3.1 x10^3/uL (2.2-4.8); NEUTROPHILS % (AUTO) 51.1 % (42.0-75.0); PLATELET COUNT 134 X10^3/uL (150.0-450.0); WHITE BLOOD COUNT 6.1 X10^3/uL (3.6-10.0)
[2021-05-04 06:37] LABS: ALANINE AMINOTRANSFERASE 32 Units/L (12-78); ALBUMIN 2.6 g/dL (3.4-5.0); ALKALINE PHOSPHATASE 89 Units/L (46-116); ASPARTATE AMINO TRANSFERASE 38 Units/L (15-37); BLOOD UREA NITROGEN 22 mg/dL (7-18); CALCIUM 8.6 mg/dL (8.5-10.1); CARBON DIOXIDE 27.6 mmol/L (21-32); CHLORIDE 107 mmol/L (98-107); COR CA(FOR HYPOALB) 9.7 mg/dL (8.5-10.1); CREATININE 1.14 mg/dL (0.55-1.02); DIGOXIN 1.25 ng/mL (0.9-2); MAGNESIUM 1.7 mg/dL (1.7-2.9); SODIUM 144 mmol/L (136-145); eGFR NON BLACK RACES 50 (>60)
[2021-05-04] MEDS: ZyrTEC TAB 10 MG PO SCH (08:57)
[2021-05-04] MEDS: ELIQUIS PO SCH (08:57)
[2021-05-04] MEDS: TOPROL XL PO SCH (08:57)
[2021-05-04] MEDS: NS 1000 ML 1,000 ML IV SCH (08:57)
[2021-05-04] MEDS: LASIX PO SCH (08:58)
[2021-05-04] MEDS: GLUCOPHAGE XR 24-HR PO SCH (08:59)
[2021-05-04] MEDS: MAG-OX TAB PO SCH (09:00)
[2021-05-04 12:14] VITALS: BP 115/55
== END 2021-05-04 13:50 ==
LOC: OBS
PROVIDERS: ADMIT Internal Medicine; ATTEND Internal Medicine
DX: E11.65 Type 2 diabetes mellitus with hyperglycemia; R27.0 Ataxia, unspecified; E86.0 Dehydration; R94.31 Abnormal electrocardiogram [ECG] [EKG]; R53.1 Weakness; Z20.822 Contact with and (suspected) exposure to COVID-19; I48.91 Unspecified atrial fibrillation; I11.0 Hypertensive heart disease with heart failure; M25.551 Pain in right hip; I50.9 Heart failure, unspecified; R40.4 Transient alteration of awareness; R29.6 Repeated falls